=== PATIENT | female | born 1950 | race Caucasian/White ===

== ENCOUNTER 2017-04-30 07:07 | Day surgery (SDC) | payer OTHER ==
[~2017-04-30] VITALS: Ht 160 cm; Wt 93.0 kg
[~2017-04-30 07:07] MED LIST: AMLO5TAB2 PO; ASPI81TA27 PO; CALC-354 OR; CARI250T PO; DIPH25CA66 PO; DONE10TA17 PO; HYDR-4683 PO; MULT-551 OR; OMEP20CA74 OR
[2017-04-30] MEDS ORDERED: IODIXANOL 320MG/ML 100ML BTL IV ONE (07:27)
[2017-04-30] MEDS ORDERED: LIDOCAINE 2%HCL (LOCAL ANESTH.) INJ 20ML MDV ONE (07:27)
[2017-04-30] MEDS ORDERED: MIDAZOLAM HCL 1MG/1ML-2 ML VIAL ONE (07:41)
[2017-04-30] MEDS ORDERED: ANGIOMAX 250 MG VIAL IV ONE (07:42)
[2017-04-30] MEDS ORDERED: fentaNYL CITRATE 100 MCG/2 ML VL ONE (07:42)
[2017-04-30] MEDS ORDERED: VERAPAMIL 2.5MG/ML INJ 2ML VIAL IV ONE (07:42)
[2017-04-30] MEDS ORDERED: SODIUM CHL 0.9% 0 ML ONE (07:44)
[2017-04-30] MEDS ORDERED: HEPARIN 1,000 UNITS/ml 1ML VIAL ONE (08:36)
== END 2017-04-30 11:00 | disposition home or self-care (01) ==
LOC: CATH 07:07
PROVIDERS: ATTEND Internal Medicine
DX: R94.39 Abnormal result of other cardiovascular function study (principal); K21.9 Gastro-esophageal reflux disease without esophagitis
CPT/HCPCS: 93458; C1769; C1894; J1644; J2250; J3010; J7030; Q9967; 99152; 99153